=== PATIENT | male | born 1965 | race Caucasian/White ===

== ENCOUNTER 2021-11-11 07:18 | Outpatient (REF) | payer OTHER, SELFPAY ==
[2021-11-11 11:38] LABS: MANUAL DIFF FLAG NO
[2021-11-11 12:00] LABS: Basophils Percent Auto 0.4 % (0-2); Eosinophils Absolute Auto 0.2 X10*3/uL (0.0-0.4); Eosinophils Percent Auto 2.6 % (0-4); Hematocrit 47.6 % (42.0-52.0); Hemoglobin 15.5 g/dl (14.0-18.0); Imm Gran Abs Auto 0.02 X10*3/uL (0.00-0.03); Imm Gran Pct Auto 0.3 % (0.0-0.4); Lymphocytes Absolute Auto 1.4 X10*3/uL (1.2-4.9); Lymphocytes Percent Auto 18.9 % (20-40); Mean Corpuscular HGB Conc 32.6 g/dl (31.0-36.0); Mean Corpuscular Hemoglobin 30.2 pg (27.0-33.0); Mean Corpuscular Volume 92.6 fL (80.0-98.0); Mean Platelet Volume 8.9 fL (9.4-12.4); Monocytes Absolute Auto 0.7 X10*3/uL (0.1-1.2); Monocytes Percent Auto 9.5 % (2-11); Neutrophils Percent Auto 68.3 % (45-73); Platelet Count 253 X10*3/uL (160-400); Red Blood Count 5.14 X10*6/uL (4.60-5.80); Red Cell Distribution Width 13.2 % (11.0-16.0); White Blood Count 7.3 X10*3/uL (4.8-10.8)
[2021-11-11 12:11] LABS: Alanine Aminotransferase 18 U/L (0-40); Alkaline Phosphatase 42 U/L (39-117); Anion Gap 9 (12-20); Aspartate Amino Transferase 17 U/L (5-37); Bilirubin Total 0.6 mg/dL (0.0-1.0); Blood Urea Nitrogen 18 mg/dL (9-16); Calcium 9.2 mg/dL (8.4-10.2); Carbon Dioxide 30 mmol/L (22-29); Chloride 105 mmol/L (96-108); Cholesterol 195 mg/dL; Estimated Glomerular Filt Rate > 60; Glucose Fasting 102 mg/dL (60-99); HDL Cholesterol 70 mg/dL; LDL Cholesterol Calculated 113 mg/dl; Potassium 4.4 mmol/L (3.3-5.1); Sodium 140 mmol/L (135-145); Total Protein 6.2 g/dL (6.5-8.0); Triglycerides 62 mg/dL
[2021-11-11 12:21] LABS: Prostate Specific Antigen Scr 0.54 ng/mL (<0.05-4.0)
== END 2021-11-11 07:19 | disposition home or self-care (01) ==
LOC: HO.HMGCLDS 07:18
PROVIDERS: Visit Provider Internal Medicine
DX: Z00.00 Encounter for general adult medical examination without abnormal findings (principal); Z12.5 Encounter for screening for malignant neoplasm of prostate; R53.83 Other fatigue; E78.00 Pure hypercholesterolemia, unspecified
CPT/HCPCS: 36415; 80053; 80061; 84153; 85025

== ENCOUNTER 2023-03-16 12:09 | Outpatient (REF) | payer OTHER, SELFPAY ==
[2023-03-16 12:58] LABS: MANUAL DIFF FLAG NO
[2023-03-16 13:07] LABS: Basophils Percent Auto 0.5 % (0-2); Eosinophils Percent Auto 0.6 % (0-4); Hematocrit 48.5 % (42.0-52.0); Imm Gran Abs Auto 0.02 X10*3/uL (0.00-0.03); Imm Gran Pct Auto 0.3 % (0.0-0.4); Lymphocytes Absolute Auto 1.1 X10*3/uL (1.2-4.9); Lymphocytes Percent Auto 17.9 % (20-40); Mean Corpuscular Hemoglobin 30.5 pg (27.0-33.0); Mean Corpuscular Volume 92.4 fL (80.0-98.0); Mean Platelet Volume 8.8 fL (9.4-12.4); Monocytes Absolute Auto 0.6 X10*3/uL (0.1-1.2); Monocytes Percent Auto 9.5 % (2-11); Neutrophils Absolute Auto 4.4 x10*3/uL (2.0-8.3); Neutrophils Percent Auto 71.2 % (45-73); Platelet Count 247 X10*3/uL (160-400); Red Blood Count 5.25 X10*6/uL (4.60-5.80); Red Cell Distribution Width 13.2 % (11.0-16.0); White Blood Count 6.2 X10*3/uL (4.8-10.8)
[2023-03-16 13:42] LABS: Prostate Specific Antigen Scr 0.55 ng/mL (<0.05-4.0)
[2023-03-16 13:52] LABS: Alanine Aminotransferase 17 U/L (0-40); Albumin Level 4.2 g/dL (3.5-5.0); Alkaline Phosphatase 46 U/L (39-117); Anion Gap 11 (12-20); Aspartate Amino Transferase 17 U/L (5-37); Bilirubin Direct 0.2 mg/dL (0.0-0.5); Bilirubin Total 0.6 mg/dL (0.0-1.0); Blood Urea Nitrogen 18 mg/dL (9-16); Carbon Dioxide 30 mmol/L (22-29); Chloride 104 mmol/L (96-108); Cholesterol 268 mg/dL (<200); Estimated Glomerular Filt Rate > 60; Glucose Fasting 70 mg/dL (60-99); HDL Cholesterol 79 mg/dL (>40); LDL Cholesterol Calculated 169 mg/dL (<100); Potassium 4.3 mmol/L (3.3-5.1); Sodium 141 mmol/L (135-145); Total Protein 6.7 g/dL (6.5-8.0); Triglycerides 103 mg/dL (<150)
== END 2023-03-16 12:10 | disposition home or self-care (01) ==
LOC: HO.HMGCLDS 12:09
PROVIDERS: PCP Internal Medicine; Visit Provider Internal Medicine
DX: R53.83 Other fatigue (principal); E78.5 Hyperlipidemia, unspecified; Z12.5 Encounter for screening for malignant neoplasm of prostate
CPT/HCPCS: 36415; 80051; 80061; 80076; 82565; 82947; 84153; 84520; 85025

== ENCOUNTER 2024-11-23 06:42 | Outpatient (REF) | payer MEDICARE, SELFPAY ==
[2024-11-23 10:20] LABS: MANUAL DIFF FLAG NO
[2024-11-23 10:29] LABS: Eosinophils Absolute Auto 0.2 X10*3/uL (0.0-0.4); Eosinophils Percent Auto 4.3 % (0-4); Hematocrit 46.8 % (42.0-52.0); Hemoglobin 15.7 g/dl (14.0-18.0); Imm Gran Abs Auto 0.02 X10*3/uL (0.00-0.03); Imm Gran Pct Auto 0.5 % (0.0-0.4); Lymphocytes Absolute Auto 1.3 X10*3/uL (1.2-4.9); Lymphocytes Percent Auto 30.7 % (20-40); Mean Corpuscular HGB Conc 33.5 g/dl (31.0-36.0); Mean Corpuscular Hemoglobin 30.7 pg (27.0-33.0); Mean Corpuscular Volume 91.4 fL (80.0-98.0); Mean Platelet Volume 8.5 fL (9.4-12.4); Monocytes Absolute Auto 0.5 X10*3/uL (0.1-1.2); Monocytes Percent Auto 11.9 % (2-11); Neutrophils Absolute Auto 2.2 x10*3/uL (2.0-8.3); Neutrophils Percent Auto 51.6 % (45-73); Platelet Count 259 X10*3/uL (160-400); Red Blood Count 5.12 X10*6/uL (4.60-5.80); Red Cell Distribution Width 13.3 % (11.0-16.0); White Blood Count 4.2 X10*3/uL (4.8-10.8)
[2024-11-23 10:52] LABS: Alanine Aminotransferase 29 U/L (0-40); Albumin Level 3.9 g/dL (3.5-5.0); Alkaline Phosphatase 44 U/L (39-117); Anion Gap 10 (12-20); Aspartate Amino Transferase 24 U/L (5-37); Bilirubin Total 0.6 mg/dL (0.0-1.0); Blood Urea Nitrogen 23 mg/dL (9-16); Calcium 8.8 mg/dL (8.4-10.2); Carbon Dioxide 30 mmol/L (22-29); Chloride 104 mmol/L (96-108); Cholesterol 268 mg/dL (<200); Estimated Glomerular Filt Rate > 60; Glucose Fasting 109 mg/dL (60-99); HDL Cholesterol 73 mg/dL (>40); LDL Cholesterol Calculated 176 mg/dL (<100); Potassium 4.2 mmol/L (3.3-5.1); Sodium 140 mmol/L (135-145); Total Protein 6.2 g/dL (6.5-8.0); Triglycerides 99 mg/dL (<150)
[2024-11-23 11:11] LABS: Prostate Specific Antigen 1.08 ng/mL (<0.05-4.0)
== END 2024-11-23 06:43 | disposition home or self-care (01) ==
LOC: HO.HMGCLDS 06:42
PROVIDERS: PCP Internal Medicine; Visit Provider Internal Medicine
DX: Z12.5 Encounter for screening for malignant neoplasm of prostate (principal); R53.83 Other fatigue; Z13.6 Encounter for screening for cardiovascular disorders; E78.5 Hyperlipidemia, unspecified
CPT/HCPCS: 36415; 80053; 80061; 84153; 85025

== ENCOUNTER 2024-12-30 06:57 | Outpatient (REF) | payer MEDICARE, SELFPAY ==
[2025-01-04 18:48] LABS: Testosterone, Free 53.6 pg/mL (35.0-155.0); Testosterone, Total 285 ng/dL (250-1100)
== END 2024-12-30 06:58 | disposition home or self-care (01) ==
LOC: HO.HMGCLDS 06:57
PROVIDERS: Visit Provider Internal Medicine
DX: E29.1 Testicular hypofunction (principal); R53.83 Other fatigue
CPT/HCPCS: 36415; 84402; 84403

== ENCOUNTER 2025-03-28 14:51 | Outpatient (AMB) | payer MEDICARE, SELFPAY ==
--- NOTE | 2025-03-28 15:10 | MHC.PC.OV ---
Vital Signs 03/28/25 15:19 Height 5 ft 9.69 in Weight 174 lb BMI 25.2 BP 134/85 Blood Pressure Location Rt brachial Position Sitting Respiration 14 Pulse 90 Pulse Source Pulse Oximeter Temp 98.2 F Temp Source Temporal Artery Scan Pulse Oximetry (%) 99 Oxygen Delivery Method Room Air Intake Visit Reasons: Establish care/ - see comments Sock Knitter Required: No Accompanied by: Self / Same As Patient Allergies No Known Allergies (No Known Allergies*) Allergy (Unverified 03/28/25 15:10) Tobacco use date assessed: 03/28/25 Dental Screening Dental Screen Date: 03/28/25 Did you have a dental visit in the last 12 months?: Yes Did you have a dental problem in the last 6 months where you did not have access to dental care?: No Was dental information given to patient?: Patient has dentist [facility] Medical History (Updated 03/28/25 @ 15:40 by Sergio Bills MD) Paresthesia Surgical History History of colonoscopy (~06/29/15) Family History (Updated 03/28/25 @ 15:23 by EREN Lucia) Father No problems noted. Mother No problems noted. Social History (Updated 03/28/25 @ 15:24 by EREN Lucia) Housing: House Alcohol intake: current Alcohol intake frequency: holidays/special occasions only Patient Tobacco Use Status: Never used Tobacco service: No Current occupational status: employed Cognitive needs: No Hearing needs: No Vision needs: No Questionnaire PHQ-9 Over the last 2 weeks, how often have you been bothered by any of the following problems? 1. Little interest or pleasure in doing things: not at all 2. Feeling down, depressed, or hopeless: not at all 3. Trouble falling or staying asleep, or sleeping too much: not at all 4. Feeling tired or having little energy: not at all 5. Poor appetite or overeating: not at all 6. Feeling bad about yourself - or that you are a failure or have let yourself or your family down: not at all 7. Trouble concentrating on things, such as reading the newspaper or watching television: not at all 8. Moving or speaking so slowly that other people could have noticed. Or the opposite - being so fidgety or restless that you have been moving around a lot more than usual: not at all 9. Thoughts that you would be better off or of hurting yourself in some way: not at all Total score: 0 Source: Developed by Drs. Benito Cruz, Karey Garcia, Daniel Leblanc and colleagues, with an educational dora from [employer]. Thrive Questionnaire Date Thrive assessed: 03/28/25 I am a: Patient What is your living situation today?: I have a steady place to live Within the past 12 months, did the food you bought not last and you didn't have the money to get more?: Never true Within the past 12 months, did you worry whether your food would run out before you got money to buy more?: Never true Do you have trouble paying for medicines?: No Do you have trouble getting transportation to medical appointments?: No Do you have trouble paying your heating and electricity bill?: No Do you have trouble taking care of your child, family member or friend?: No Do you have trouble with day-to-day activities such as bathing, preparing meals, shopping, managing finances, etc.?: No Are you currently unemployed and looking for a job?: No Are you interested in more education?: No Please select the resources that you would like help with: None THRIVE Score: 0 AUDIT C Alcohol Use Questionnaire (AUDIT-C) 1. How often do you have a drink containing alcohol?: Monthly or less 2. How many drinks containing alcohol do you have on a typical day when you are drinking?: 1 or 2 3. How often do you have six or more drinks on one occasion?: Never Total Score: 1 VISHAL-7 AMB Questionnaire VISHAL-7 Date VISHAL - 7 assessed: 03/28/25 Feeling nervous, anxious, or on edge: 0 = Not at all Not being able to stop or control worryin = Not at all Worrying too much about different things: 0 = Not at all Trouble relaxin = Not at all Being so restless that it is hard to sit still: 0 = Not at all Becoming easily annoyed or irritable: 0 = Not at all Feeling afraid as if something awful might happen: 0 = Not at all Total VISHAL-7 score (0-4 normal; 5-9 mild; 10-14 moderate; 15-21 severe): 0 Source: Developed by Drs. Benito Cruz, Karey Garcia, Daniel Leblanc and colleagues, with an educational dora from [employer]. Physical exam (Primary Care) Vital Signs: Last Vital Signs Temp 98.2 F 03/28/25 15:19 Pulse 90 03/28/25 15:19 Resp 14 03/28/25 15:19 BP 134/85 03/28/25 15:19 Pulse Ox 99 03/28/25 15:19 Oxygen Delivery Method Room Air 03/28/25 15:19 BMI result Body Mass Index 25.2 Tobacco/Smoking Status: Tobacco use Status Tobacco use date assessed 03/28/25 03/28/25 15:12 Patient Tobacco Use Status Never used Tobacco 03/28/25 15:24 PHQ-9: PHQ-9 Score PHQ-9: Total score 0 03/28/25 15:24 Thrive Assessment: Date of Thrive Assessment Date Thrive assessed 03/28/25 03/28/25 15:12 Coding Level of Care Code New Pt Level 4 (44366) Complex EM visit Add On G2211 Diagnoses Paresthesia R20.2 Assessment & Plan Assessment & Plan (1) Paresthesia: Code(s): R20.2 - Paresthesia of skin Category: Medical Plan: History of Present Illness - The patient is a 60-year-old male presenting with a persistent burning sensation in the lower extremities and perianal area. - The issue began after an episode of contact dermatitis in February, following exposure to poison love or oak, treated with prednisone. - The burning sensation is described as constant, with episodes of increased intensity, and is not relieved by previous treatments. - The patient reports no significant rash currently, but occasional bumps and redness have been noted. - Previous blood work indicated hypercholesterolemia, for which the patient was prescribed simvastatin but discontinued due to concerns about side effects. - The patient had a colonoscopy in 2014, which was clear, and is due for another at the end of the year. Social History - Employment: Works at [employer] in [place], a [employer]. - Family status: has frontotemporal dementia (FTD). Review of Systems - Dermatological: Reports burning sensation in lower extremities and perianal area. Denies significant rash currently, but notes occasional bumps and redness. - Neurological: Denies any significant neurological problems in family history, except 's FTD. Physical Exam General: Cooperative and healthy appearing Nutritional Appearance: Well nourished Orientation/consciousness: Patient oriented x3 Limitations: No limitations Head: Normal to inspection General: Appearance normal, both eyes and all related structures Neck: Normal visual inspection Chest: Normal palpation of entire chest wall Respiratory: N ormal respiratory effort Neurology: Patient oriented x3, reports burning sensation on the back of legs, anus, and feet. Results - Labs: Previous blood work indicated hypercholesterolemia. - Screening: Colonoscopy in 2014 was clear. Plan 1. Contact Dermatitis - Plan to refer to a covered buckle assembler for further evaluation if symptoms persist. 2. Burning Sensation In Lower Extremities And Perianal Area - Blood work to check for vitamin deficiencies and other potential causes. - Consider referral to a covered buckle assembler if no improvement with initial management. 3. Hypercholesterolemia - Restart simvastatin 20 mg to manage cholesterol levels. - Discussed the importance of medication adherence to reduce cardiovascular risk. Discussion Notes I discussed with the patient the plan to conduct blood work to identify any vitamin deficiencies that might be contributing to the burning sensation. If the symptoms persist, a referral to a covered buckle assembler will be considered. We also discussed restarting simvastatin to manage hypercholesterolemia and the importance of adherence to reduce cardiovascular risk. Patient Instructions - Complete the blood work as soon as possible, fasting after midnight. - Restart simvastatin 20 mg as prescribed. - Follow up in one month to review blood work results and symptom progression. - Consider seeing a covered buckle assembler if symptoms do not improve. Orders: Orders Lipid Panel Today R20.2 - Paresthesia of skin Liver Panel Today R20.2 - Paresthesia of skin Basic Metabolic Panel Today R20.2 - Paresthesia of skin Complete Blood Count no Diff Today R20.2 - Paresthesia of skin UA and rflx microscopic Today R20.2 - Paresthesia of skin Thyroid Stimulating Hormone Today R20.2 - Paresthesia of skin Vitamin B12 and Folate Today R20.2 - Paresthesia of skin Medications: New simvastatin 20 mg PO BEDTIME 90 tabs 1RF
[2025-03-28 15:19] VITALS: BP 134/85; PULSE 90; RESP 14; TEMP 36.8; O2SAT 99; BMI 25.2
--- OUTSIDE RECORDS SUMMARY | 2025-03-28 17:18 | XMS_ITS | Patient Health Record ---
Author Organization [facility] Address [address] [place] [address] Care Team Providers Care Still Operator Name Role Phone Lubna (RETIRED) Rangel SUMMERS Primary Care Provider Unavailable Ace May Jr Unavailable Reason For Referral No Information Medications Medication SIG (Take, Route, Fr equency, Duration) Notes Start Date End Date Status Simvastatin 20 MG 1 tablet in the even ing Orally Once a day Active Suprep Bowel Prep 1 as directed Orally 1 for 1 dose 03/21/2015 Active Problems Problem Type SNOMED Code ICD Code Onset Dates Problem Status W/U Status Risk Notes Problem [id number] Colon cancer screening (V76.51) Active confirmed Plan Of Treatment Future Test Test Name Order Date COLONOSCOPY 03/21/2015 Insurance Providers Payer Name Payer Address Payer Phone Subscriber Number Group Number Insured Name Patient Relationship to Insured Coverage Start Date Coverage End Date [employer] [employer] [address] [place] [phone] [id number] CHRISTIANO OBRIEN Self - patient is the insured Medical (General) History Medical History History ICD Code elevated cholesterol Surgical History Surgery Date(Month/Year) knee surgery-right
== END 2025-03-28 15:45 | disposition home or self-care (01) ==
LOC: HO.HMCSH 14:51
PROVIDERS: PCP Internal Medicine; Visit Provider Internal Medicine
DX: R20.2 Paresthesia of skin (principal)

== ENCOUNTER → 2025-03-28 14:51 | Outpatient (BNVA) | payer MEDICARE, SELFPAY | PROVIDERS: PCP Internal Medicine; Visit Provider Internal Medicine | DX: Z76.89 Persons encountering health services in other specified circumstances (principal); R20.2 Paresthesia of skin | CPT/HCPCS: 99202 ==

== ENCOUNTER 2025-04-05 07:16 | Outpatient (REF) | payer OTHER, SELFPAY ==
--- OUTSIDE RECORDS SUMMARY | 2025-04-05 07:20 | XMS_ITS | Patient Health Record ---
[facility] Address [address] [place] [address] Care Team Providers Care Head Of Human Resources Name Role Phone Lubna (RETIRED) Rangel SUMMERS Primary Care Provider Unavailable Ace May Jr Unavailable [phone] Reason For Referral No Information Medications Medication SIG (Take, Route, Fr equency, Duration) Notes Start Date End Date Status Simvastatin 20 MG 1 tablet in the even ing Orally Once a day Active Suprep Bowel Prep 1 as directed Orally 1 for 1 dose 03/21/2015 Active Problems Problem Type SNOMED Code ICD Code Onset Dates Problem Status W/U Status Risk Notes Problem [id number] Colon cancer screening (V76.51) Active confirmed Plan Of Treatment Future Test Test Name Order Date COLONOSCOPY 03/21/2015 Insurance Providers Payer Name Payer Address Payer Phone Subscriber Number Group Number Insured Name Patient Relationship to Insured Coverage Start Date Coverage End Date [place] [employer] [address] [place] [phone] [id number] CHRISTIANO OBRIEN Self - patient is the insured Medical (General) History Medical History History ICD Code elevated cholesterol Surgical History Surgery Date(Month/Year) knee surgery-right
[2025-04-05 10:08] LABS: Appearance Urine Clear; Glucose Urine UA Negative (Negative); PH 5.5 (5.0-9.0); Specific Gravity - Urine 1.020 (1.005-1.025)
[2025-04-05 10:34] LABS: Hematocrit 46.6 % (42.0-52.0); Hemoglobin 15.2 g/dl (14.0-18.0); Mean Corpuscular HGB Conc 32.6 g/dl (31.0-36.0); Mean Corpuscular Hemoglobin 30.5 pg (27.0-33.0); Mean Corpuscular Volume 93.4 fL (80.0-98.0); NRBC Abs Auto 0.000 X10*3/uL (0.0-0.012); NRBC Pct Auto 0.0 /100WBC (0.0-0.2); Platelet Count 265 X10*3/uL (160-400); Red Blood Count 4.99 X10*6/uL (4.60-5.80); White Blood Count 4.7 X10*3/uL (4.8-10.8)
[2025-04-05 11:07] LABS: Alanine Aminotransferase 24 U/L (0-40); Albumin Level 4.0 g/dL (3.5-5.0); Alkaline Phosphatase 48 U/L (39-117); Anion Gap 9 (12-20); Aspartate Amino Transferase 21 U/L (5-37); Blood Urea Nitrogen 16 mg/dL (9-16); Calcium 8.9 mg/dL (8.4-10.2); Carbon Dioxide 29 mmol/L (22-29); Chloride 107 mmol/L (96-108); Cholesterol 240 mg/dL (<200); Estimated Glomerular Filt Rate > 60; HDL Cholesterol 70 mg/dL (>40); Potassium 4.2 mmol/L (3.3-5.1); Sodium 141 mmol/L (135-145); Total Protein 6.1 g/dL (6.5-8.0); Triglycerides 117 mg/dL (<150)
[2025-04-05 11:13] LABS: Folate 8.7 ng/mL (> or = 4.0); Vitamin B12 443 pg/mL (200-900)
[2025-04-05 11:17] LABS: Thyroid Stimulating Hormone 3.38 uIU/mL (0.32-4.0)
== END 2025-04-05 07:17 | disposition home or self-care (01) ==
LOC: HO.HMGCLDS 07:16
PROVIDERS: PCP Internal Medicine; Visit Provider Internal Medicine
DX: Z13.6 Encounter for screening for cardiovascular disorders (principal); R20.2 Paresthesia of skin
CPT/HCPCS: 36415; 80048; 80061; 80076; 81003; 82607; 82746; 84443; 85027

== ENCOUNTER 2025-05-15 13:55 | Outpatient (AMB) | payer OTHER, SELFPAY ==
--- NOTE | 2025-05-15 13:56 | MHC.PC.OV ---
Vital Signs 05/15/25 13:57 Height 5 ft 9.69 in Weight 177 lb BMI 25.6 BP 146/88 H Respiration 16 Pulse 88 Pulse Source Pulse Oximeter Temp 98.1 F Temp Source Temporal Artery Scan Pulse Oximetry (%) 99 Oxygen Delivery Method Room Air Intake Visit Reasons: 1 month follow up Process Maintenance Technician Required: No Accompanied by: Self / Same As Patient Allergies No Known Allergies (No Known Allergies*) Allergy (Unverified 05/15/25 13:57) Tobacco use date assessed: 03/28/25 Dental Screening Dental Screen Date: 03/28/25 [facility] Medical History (Updated 05/15/25 @ 14:33 by Sergio Bills MD) Optic neuritis Paresthesia Surgical History History of colonoscopy (~06/29/15) Family History (Updated 03/28/25 @ 15:23 by EREN Lucia) Father No problems noted. Mother No problems noted. Social History (Updated 03/28/25 @ 15:24 by EREN Lucia) Housing: House Alcohol intake: current Alcohol intake frequency: holidays/special occasions only Patient Tobacco Use Status: Never used Tobacco service: No Current occupational status: employed Cognitive needs: No Hearing needs: No Vision needs: No Questionnaire Thrive Questionnaire Date Thrive assessed: 03/28/25 VISHAL-7 AMB Questionnaire VISHAL-7 Date VISHAL - 7 assessed: 03/28/25 Source: Developed by Drs. Benito Cruz, Karey Garcia, Daniel Leblanc and colleagues, with an educational dora from [email or web address]. Physical exam (Primary Care) Vital Signs: Last Vital Signs Temp 98.1 F 05/15/25 13:57 Pulse 88 05/15/25 13:57 Resp 16 05/15/25 13:57 BP 146/88 H 05/15/25 13:57 Pulse Ox 99 05/15/25 13:57 Oxygen Delivery Method Room Air 05/15/25 13:57 BMI result Body Mass Index 25.6 Tobacco/Smoking Status: Tobacco use Status Tobacco use date assessed 03/28/25 05/15/25 13:58 Patient Tobacco Use Status Never used Tobacco 05/15/25 13:58 Thrive Assessment: Date of Thrive Assessment Date Thrive assessed 03/28/25 05/15/25 13:58 Office Procedures Flu Questionnaire Does the patient have a severe egg allergy?: No Does the patient have severe life threatening allergies?: No Does the patient have a fever or illness today?: No Has the patient ever had Guillain-[place] Syndrome?: No Has the patient ever had any past reaction to a flu shot?: No Immunizations Fluarix [id number] (PF) 45 mcg (15 mcg x 3)/0.5 mL IM syringe Performing Provider: Sergio Bills MD [facility] [place] [facility] Documented (not given) by: EERN Lucia on 05/15/25 14:19 Reason Not Given: Patient Refused Coding Level of Care Code Est Pt Level 4 (23734) Complex EM visit Add On G2211 Diagnoses Rash R21 Optic neuritis H46.9 Paresthesia R20.2 Assessment & Plan Assessment & Plan (1) Rash: Code(s): R21 - Rash and other nonspecific skin eruption Plan: Dermatology appt scheduled (2) Optic neuritis: Code(s): H46.9 - Unspecified optic neuritis Category: Medical Plan: Right eye has peripheral vision, no central vision. Stable since the . 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 - The skin discomfort has been persistent, with burning sensations occurring around the anus and ankles. - Previous treatment with prednisone was ineffective. - The patient reports no significant changes in sleep patterns, although the discomfort occasionally affects sleep quality. - The patient has a history of optic neuritis diagnosed in the , resulting in partial vision loss in the right eye. - There is no known autoimmune condition associated with the optic neuritis. - The patient has been managing elevated cholesterol with statin therapy. - Recent blood work showed normal white blood cell count, kidney function, electrolytes, and liver enzymes, with only cholesterol being slightly elevated. - Testosterone levels were slightly low but within the normal range. - The patient has declined flu vaccination, citing a preference to avoid additional substances in the body. Social History - The patient is dealing with a difficult family situation, as his has a terminal condition. Review of Systems - Dermatological: Reports burning sensations in the skin, particularly around the anus and ankles. - Neurological: Denies any new neurological symptoms apart from the existing optic neuritis. - Sleep: Reports no significant changes in sleep patterns, although discomfort occasionally affects sleep quality. Physical Exam General: Cooperative and healthy appearing Nutritional Appearance: Well nourished Orientation/consciousness: Patient oriented x3 Limitations: No limitations Head: Normal to inspection General: Appearance normal, both eyes and all related structures Neck: Normal visual inspection Chest: Normal palpation of entire chest wall Respiratory: N ormal respiratory effort Neurology: Patient oriented x3, experiencing generalized paresthesia, tingling, and burning sensations. Vision loss in the right eye due to optic neuritis diagnosed in the , no recent changes. Results - Labs: Normal white blood cell count, kidney function, electrolytes, and liver enzymes; slightly elevated cholesterol. - Testosterone: Slightly low but within normal range. Plan - Prescribe Neurontin to manage skin discomfort symptoms, with dosage adjustments as needed. - Conduct further blood work to rule out autoimmune conditions, including ESR, vitamin B12, and folate levels. - Refer to a physical anthropologist for further evaluation of skin symptoms. - Consider referral to a neurologist for additional assessment of burning sensations. - Continue statin therapy for cholesterol management. Discussion Notes I discussed with the patient the plan to manage his skin discomfort, including prescribing Neurontin and conducting further blood work to rule out autoimmune conditions. We also talked about referrals to a physical anthropologist and possibly a neurologist for further evaluation. The importance of continuing statin therapy for cholesterol management was emphasized. The patient declined the flu vaccination, and I respected his decision. We agreed to follow up in six months to reassess his condition and treatment efficacy. Patient Instructions - Take Neurontin as prescribed, adjusting the dosage if needed. - Attend scheduled appointments with the physical anthropologist and neurologist. - Continue taking statin medication as directed. - Follow up in six months for reassessment. Orders: Orders Influenza [id number] Immunization Today Z23 - Encounter for immunization Referrals Dermatology Referral R21 - Rash and other nonspecific skin eruption
[2025-05-15 13:57] VITALS: BP 146/88; PULSE 88; RESP 16; TEMP 36.7; O2SAT 99; BMI 25.6
--- OUTSIDE RECORDS SUMMARY | 2025-05-15 17:34 | XMS_ITS | Patient Health Record ---
Author Organization [facility] Address [address] [place] [address] Care Team Providers Care Geological Engineer Name Role Phone Lubna (RETIRED) Rangel SUMMERS Primary Care Provider Unavailable Ace May Jr Unavailable Reason For Referral No Information Medications Medication SIG (Take, Route, Fr equency, Duration) Notes Start Date End Date Status Simvastatin 20 MG 1 tablet in the even ing Orally Once a day Active Suprep Bowel Prep 1 as directed Orally 1 ; Duration: 1 dose 03/21/2015 Active Problems Problem Type SNOMED Code ICD Code Onset Dates Problem Status W/U Status Risk Notes Problem Colon cancer screening ([id number]) Colon cancer screening (V76.51) Active confirmed Plan Of Treatment Future Test Test Name Order Date COLONOSCOPY 03/21/2015 Insurance Providers Payer Name Payer Address Payer Phone Subscriber Number Group Number Insured Name Patient Relationship to Insured Coverage Start Date Coverage End Date [place] [employer] [address] [place] [phone] [id number] CHRISTIANO OBRIEN Self - patient is the insured Medical (General) History Medical History History ICD Code elevated cholesterol Surgical History Surgery Date(Month/Year) knee surgery-right
== END 2025-05-15 14:38 | disposition home or self-care (01) ==
LOC: HO.HMCSH 13:55
PROVIDERS: PCP Internal Medicine; Visit Provider Internal Medicine
DX: R21 Rash and other nonspecific skin eruption (principal); H46.9 Unspecified optic neuritis; R20.2 Paresthesia of skin; Z23 Encounter for immunization

== ENCOUNTER → 2025-05-15 13:55 | Outpatient (BNVA) | payer OTHER, SELFPAY | PROVIDERS: PCP Internal Medicine; Visit Provider Internal Medicine | DX: R21 Rash and other nonspecific skin eruption (principal); H46.9 Unspecified optic neuritis; Z28.21 Immunization not carried out because of patient refusal; R20.2 Paresthesia of skin | CPT/HCPCS: 90471 ==